=== PATIENT | female | born 1990 | race Caucasian/White ===

== ENCOUNTER 2021-01-26 05:10 | Inpatient (IN) ==
[2021-01-26] MEDS ORDERED: LACTATED RINGERS 500 ML IV PRN (05:28)
[2021-01-26] MEDS ORDERED: ONDANSETRON 4 MG/2 ML VIAL IV PRN (05:28)
[2021-01-26 06:16] LABS: Basophils % 0.2 % (0.0-0.8); Eosinophils # 0.1 10*3/uL (0.0-0.87); Eosinophils % 0.7 % (0.00-10.9); Immature Granulocytes Absolute 0.08 #; Lymphocytes % 23.4 % (21.3-54.2); Mean Corpuscular HGB Conc 33.3 GM/DL (32-36); Mean Corpuscular Volume 97.8 FL (87-102); Mean Platelet Volume 12.2 FL (9.6-12.0); Monocytes % 5.4 % (1.7-12.7); Neutrophils % 69.3 % (38.7-73.9); Platelet Count 124 T/CUMM (130-400); Red Blood Count 3.68 MC/CUMM (3.8-5.5); Red Cell Distribution Width 13.1 % (9.3-17.3); White Blood Count 8.3 T/CUMM (4-12)
[2021-01-26] MEDS: LACTATED RINGERS 1,000 ML IV SCH ×2 (06:18→14:27)
[2021-01-26] MEDS ORDERED: OXYTOCIN/LR 20 UNIT/1,000 ML BAG IV SCH (06:30)
[2021-01-26 06:42] LABS: Alanine Aminotransferase 22 U/L (13-56); Albumin 2.8 G/DL (3.4-5.0); Alkaline Phosphatase 129 U/L (45-117); Aspartate Amino Transferase 17 U/L (0-37); Bilirubin,Total < 0.39 MG/DL (0.20-1.00); Blood Urea Nitrogen 7 MG/DL (7-18); Calcium 8.7 MG/DL (8.5-10.1); Carbon Dioxide 20 MMOL/L (21-32); Estimated Glom Filtration Rate 116 ML/MIN; Glucose 94 MG/DL (74-106); Osmolality,Calculated 278.3 MOS/KG (273-304); Potassium 3.4 MMOL/L (3.5-5.1); Sodium 141 MMOL/L (136-145); Total Protein 6.7 G/DL (6.4-8.2)
[2021-01-26] MEDS ORDERED: CITRIC ACID/SODIUM CITRATE 30 ML UDCUP PO ONE (07:56)
[2021-01-26] MEDS ORDERED: hydrOXYzine HCL 25 MG/1 ML VIAL IM PRN (07:56)
[2021-01-26] MEDS ORDERED: LACTATED RINGERS 1,000 ML IV ONE (07:56)
[2021-01-26] MEDS ORDERED: diphenhydrAMINE 50 MG/1 ML VIAL IV PRN ×2 (07:56)
[2021-01-26] MEDS ORDERED: ePHEDrine 50 MG/ML VIAL IV PRN (07:56)
[2021-01-26] MEDS ORDERED: NALOXONE 0.4 MG/ML VIAL IV PRN (07:56)
[2021-01-26] MEDS ORDERED: FAMOTIDINE 20 MG/2 ML VIAL IV ONE (07:56)
[2021-01-26] MEDS ORDERED: fentaNYL 2 MCG/ROPIV 0.2% EPID 100 ML EPIDURAL SCH (08:00)
[2021-01-26 12:38] LABS: Bacteria,Urine Occasional /HPF (Few); Mucus,Urine Occasional /LPF (Occasional)
[2021-01-26 12:39] LABS: Bilirubin,Urine Negative (Negative); Blood, Urine Negative (Negative); Glucose,Urine (UA) Negative (Negative); Ketones,Urine Negative (Negative); Nitrite,Urine Negative (Negative); Protein,Urine Negative; Urine Appearance Clear (Clear); Urine Color Yellow (Yellow); Urine Specific Gravity 1.005 (1.001-1.035); Urine Urobilinogen 0.2 EU/DL (0.2-1.0)
[2021-01-26] MEDS ORDERED: METHYLERGONOVINE 0.2 MG/1 ML AMP ONE (19:05)
[2021-01-26] MEDS ORDERED: miSOPROStoL 200 MCG TABLET ONE (19:05)
[2021-01-26] MEDS ORDERED: TRANEXAMIC ACID 1,000 MG/10 ML VIAL ONE (19:05)
[2021-01-26] MEDS ORDERED: CARBOPROST TROMETHAMINE 250 MCG/ML AMP IM ONE (19:06)
[2021-01-26 19:46] LABS: Cord Venous Blood HCO3 19.6 MMOL/L; Cord Venous Blood PCO2 46.6 MMHG; Cord Venous Blood PO2 24.4
[2021-01-26] MEDS: IBUPROFEN 800 MG TABLET PO PRN (22:14)
[2021-01-26] MEDS ORDERED: HYDROCORTISONE 2.5% RECTAL CREAM 30 GM TUBE TOP PRN (23:16)
[2021-01-26] MEDS ORDERED: WITCH HAZEL PADS 100/JAR TOP PRN (23:16)
[2021-01-26] MEDS ORDERED: BISACODYL 10 MG SUPP RECTAL PRN (23:16)
[2021-01-26] MEDS ORDERED: DIPH/TET/ACEL PERT BOOSTER VACCINE 0.5 ML VIAL IM ONE (23:16)
[2021-01-26] MEDS ORDERED: OXYTOCIN/LR 20 UNIT/1,000 ML BAG IV ONE (23:16)
[2021-01-26] MEDS ORDERED: oxyCODONE/ACETAMINOPHEN 5-325 MG TABLET PO PRN ×2 (23:16)
[2021-01-26] MEDS ORDERED: RHO(D) IMMUNE GLOBULIN 300 MCG SYRINGE IM ONE (23:16)
[2021-01-26] MEDS ORDERED: ACETAMINOPHEN 325 MG TABLET PO PRN (23:16)
[2021-01-26] MEDS ORDERED: IBUPROFEN 800 MG TABLET PO PRN (23:16)
[2021-01-26] MEDS ORDERED: LANOLIN 50% CREAM 0.3 OZ TUBE TOP PRN (23:16)
[2021-01-26] MEDS ORDERED: BENZOCAINE 20%/MENTHOL 0.5% SPRAY 56 GM CAN TOP PRN (23:16)
[2021-01-26] MEDS ORDERED: MEASLES/MUMPS/RUBELLA VACCINE 0.5 ML VIAL SUBCUT ONE (23:16)
[2021-01-26] MEDS: DOCUSATE SODIUM 100 MG CAPSULE PO SCH (23:45)
[2021-01-27] MEDS: IBUPROFEN 800 MG TABLET PO PRN ×3 (04:09→20:38)
[2021-01-27 06:30] LABS: Basophils % 0.2 % (0.0-0.8); Eosinophils # 0.1 10*3/uL (0.0-0.87); Eosinophils % 0.4 % (0.00-10.9); Immature Granulocytes % 0.6 %; Immature Granulocytes Absolute 0.08 #; Lymphocytes # 1.6 10*3/uL (1.4-4.0); Lymphocytes % 12.7 % (21.3-54.2); Mean Corpuscular HGB Conc 33.3 GM/DL (32-36); Mean Corpuscular Volume 97.4 FL (87-102); Mean Platelet Volume 12.7 FL (9.6-12.0); Monocytes % 5.5 % (1.7-12.7); Neutrophils % 80.6 % (38.7-73.9); Platelet Count 102 T/CUMM (130-400); Red Blood Count 3.08 MC/CUMM (3.8-5.5); Red Cell Distribution Width 13.1 % (9.3-17.3); White Blood Count 12.8 T/CUMM (4-12)
[2021-01-27] MEDS: DOCUSATE SODIUM 100 MG CAPSULE PO SCH ×2 (08:41→20:38)
[2021-01-28 07:56] VITALS: BP 118/70
[2021-01-28] MEDS: DOCUSATE SODIUM 100 MG CAPSULE PO SCH (09:20)
== END 2021-01-28 10:15 | disposition home or self-care (01) | DRG 807 ==
LOC: N.LD 05:10 → N.OB 23:16
PROVIDERS: ADMIT Obstetrics & Gynecology; ATTEND Obstetrics & Gynecology